=== PATIENT | female | born 1990 | race Caucasian/White ===

== ENCOUNTER → 2022-09-24 14:08 | Outpatient (CLI) | payer OTHER, SELFPAY ==
[2022-09-26 14:24] LABS: Candida species Negative (Negative); Gardnerella vaginalis Negative (Negative); Trichomoas vaginalis Negative (Negative)
== END ==
PROVIDERS: PCP Family Medicine; Visit Provider Physician Assistant Medical
DX: N89.8 Other specified noninflammatory disorders of vagina (principal)
CPT/HCPCS: 87480; 87510; 87660